=== PATIENT | female | born 1965 | race Caucasian/White ===

== ENCOUNTER 2024-11-19 12:46 | Emergency (ER) | payer OTHER ==
[2024-11-19 13:14] VITALS: TEMP 97
[2024-11-19 13:16] LABS: BASOPHIL % 0.8 % (0.1-1.2); Basophil (Absolute #) 0.04 x10^3/uL (0.01-0.08); Eosinophil (Absolute #) 0.15 x10^3/uL (0.04-0.36); Hematocrit 43.0 % (34.1-44.9); Hemoglobin 14.2 g/dL (11.2-15.7); IMMATURE GRAN # 0.03 x10^3u/L (0.001-0.031); IMMATURE GRAN % 0.6 % (0.001-0.429); Lymphocyte (Absolute #) 1.17 x10^3/uL (1.18-3.74); Mean Corpuscular Hemoglobin 33.6 pg (25.6-32.2); Mean Corpuscular Hgb Concent. 33.0 g/dL (32.2-35.5); Monocyte (Absolute #) 0.51 x10^3/uL (0.24-0.86); NUCLEATED RBC # 0.00 x10^3u/L (0.00-0.012); NUCLEATED RBC % 0.0 % (0.00-0.2); Platelet Count 212 x10^3/uL (182-369); Red Blood Count 4.23 x10^6/uL (3.93-5.22); White Blood Count 4.8 x10^3/uL (3.98-10.04)
--- NOTE | 2024-11-19 13:18 | ERPHSYRPT ---
- History of Present Illness Time Seen by Provider: 11/19/24 12:52 Source: patient, family Exam Limitations: no limitations Patient Subjective Stated Complaint: patient has had right lower extremity pain that goes across lower back since Triage Nursing Assessment: patient presents to ed via private vehicle accompanied by friend, patient wheeled into ed via wheelchair, patient able to transfer to bed by self with noted weakness to right lower extremity, patient alert and oriented x 4, skin p/w/d Physician History: Patient is here with right hip pain that radiates across to her right lower back. Patient states that she has had pain for approximately 1 month. States that she does have a follow-up with her PCP tomorrow, Dr. Valdovinos. Patient states that she describes the pain as cramping, mid thigh to right hip. Over the past few days it has started to radiate to her right back. Patient states that she does have a history of lumbar fusions. She has no falls or other trauma. States that she has tried Tylenol, ibuprofen. She did not feel it helped very much. Patient was seen at [facility]. There she was given Flexeril. She states that this only helped somewhat. Over the past 2 to 3 days she has stated that the cramping has gotten much worse. She finds it difficult to get out of bed. Again, no falls or trauma. No fever or chills. No other infectious type symptoms. Describes it only as cramping and muscle spasms. Patient has no red flag symptoms for back pain today: No Loss of control of the bowel or bladder. No weakness or numbness in a leg or arm. No foot drop, disturbed gait. No high fever, no IV drug use. No saddle anaesthesia (numbness of the anus, perineum or genitals). No trauma or h/o cancer Allergies/Adverse Reactions: ziprasidone [From Geodon] Allergy (Verified 11/19/24 13:03) Home Medications: Buspirone HCl [Bucapsol] 10 mg PO BID 11/19/24 [History] Cholecalciferol (Vitamin D3) [Vitamin D3] 1,000 mcg PO DAILY 11/19/24 [History] Cyanocobalamin (Vitamin B-12) [Vitamin B12] 1,000 mcg PO DAILY 11/19/24 [History] Eszopiclone [Lunesta] 2 mg PO HS 11/19/24 [History] Furosemide [Lasix] 20 mg PO DAILY 11/19/24 [History] Levothyroxine Sodium [Synthroid] 125 mcg PO DAILY 11/19/24 [History] Loperamide HCl 2 mg [Imodium 2 mg] 2 mg PO CLARIFY 11/19/24 [History] Ondansetron ODT 4 MG [Zofran Odt 4 mg] 8 mg PO Q6-8HPRN PRN 11/19/24 [History] Phentermine HCl [Adipex-P] 37.5 mg PO DAILY 11/19/24 [History] Travel Risk - International Travel Have you traveled outside of the country in past 3 weeks: No - Emerging Infectious Disease Are you exhibiting symptoms associated with any current EIDs: No - Past Medical History Pertinent Past Medical History: Yes Respiratory History: Other Endocrine Medical History: Hypothyroidism Other Medical History: pernicious anemia, hx pyloric stenosis as child, nodule on lung. hx: squamous cell carcinoma and colorectal cancer - Past Surgical History Past Surgical History: Yes Gastrointestinal: Appendectomy, Cholecystectomy, Hernia Repair Musculoskeletal: Orthopedic Surgery Female Surgical History: Hysterectomy Other Surgical History: pyloric stenosis NB. knee surgery to both. carpal tunnel surgery x 3 to both hands. herniated disc repair. disc compression surgery. triple laminectomy lower back. rods placed in back. hx: T-9/T10 fracture - Social History Smoking Status: Current every day smoker Exposure to second hand smoke: Yes Drug Use: marijuana - Social Determinants of Health Will the patient participate in the screening: Yes Do you worry about a steady place to live?: No Do you have any problems with any of the following?: No known problems In the past 12 months,have you had to go without utilities?: No Transportation Issues: No Has anyone in your support network made you feel unsafe?: No Have you or anyone in your house had to go w/o enough food: No - Nursing Vital Signs Nursing Vital Signs: Initial Vital Signs Temperature 97 F 11/19/24 12:47 Pulse Rate 100 H 11/19/24 12:47 Respiratory Rate 16 11/19/24 12:47 O2 Sat by Pulse Oximetry 98 11/19/24 12:47 Pain Scale Pain Intensity 6 - Physical Exam SpO2: 99 Comments: Review of Systems Constitutional: Negative for fever. HENT: Negative for congestion. Respiratory: Negative for shortness of breath. Cardiovascular: Negative for chest pain. Gastrointestinal: Negative for abdominal pain. Genitourinary: Negative for dysuria. Musculoskeletal: Negative for back pain. Skin: Negative for rash. Neurological: Negative for headaches. Psychiatric/Behavioral: Negative for behavioral problems. All other systems reviewed and are negative. Physical Exam Vitals signs and nursing note reviewed. Constitutional: Appearance: Patient is well-developed. HENT: Head: Normocephalic and atraumatic. Eyes: Conjunctiva/sclera: Conjunctivae normal. Neck: Musculoskeletal: Normal range of motion. Trachea: No tracheal deviation. Cardiovascular: Rate and Rhythm: Normal rate. Heart sounds normal. Pulmonary: Effort: Pulmonary effort is normal. No respiratory distress. Abdominal: Palpations: Abdomen is soft. Musculoskeletal: General: Right anterior hip tenderness extending into the right lateral thigh. Some tenderness over low back. No specific L-spine, T-spine tenderness no step-offs no deformities. No obvious deformity, sensation intact, 2+ capillary refill. 5 out of 5 strength. Full range of motion with pain. Compartments are soft, nontender. Overlying skin shows no tenting, bruising, ecchymosis. Skin: General: Skin is warm and dry. Neurological/ Psychiatric: Mental Status: Mental status, behavior, interaction with environment is appropriate for patient's age and condition - Course Nursing assessment & vital signs reviewed: Yes Ordered Tests: Active Orders 24 hr Category Date Time Status IV Insertion STAT Care 11/19/24 12:59 Completed ABDOMEN AND PELVIS W/0 CONTRAS [CT] Stat Exams 11/19/24 12:59 Completed BMP Stat Lab 11/19/24 13:14 Completed CBC W DIFF Stat Lab 11/19/24 13:14 Completed CK (IN-HOUSE) [CK-Creatinine Phosphokinase] Stat Lab 11/19/24 13:14 Completed Medication Summary Discontinued Medications Generic Name Dose Route Start Last Admin Trade Name Freq PRN Reason Stop Dose Admin Hydrocodone Bitart/Acetaminophen 2 tab 11/19/24 15:24 11/19/24 15:31 Hydrocodone/Apap 5/325 1 Tab Tablet PO 11/19/24 15:25 2 tab SENT HOME W/ PATIENT ONE Administration Hydrocodone Bitart/Acetaminophen Confirm 11/19/24 15:28 Hydrocodone/Apap 5/325 1 Tab Tablet Administered 11/19/24 15:29 Dose 2 tab .ROUTE .STK-MED ONE Sodium Chloride 1,000 mls @ 999 mls/hr 11/19/24 12:59 11/19/24 14:22 Sodium Chloride 0.9% 1000 Ml IV 11/19/24 13:59 Infused .Q1H1M STA Infusion Sodium Chloride Confirm 11/19/24 13:20 Sodium Chloride 0.9% 1000 Ml Administered 11/19/24 13:21 Dose 1,000 mls @ ud .ROUTE .STK-MED ONE Ketorolac Tromethamine 30 mg 11/19/24 12:59 11/19/24 13:23 Ketorolac Tromethamine 30 Mg/Ml Inj IV 11/19/24 13:00 30 mg STAT ONE Administration Ketorolac Tromethamine Confirm 11/19/24 13:19 Ketorolac Tromethamine 30 Mg/Ml Inj Administered 11/19/24 13:20 Dose 30 mg .ROUTE .STK-MED ONE Morphine Sulfate 4 mg 11/19/24 12:59 11/19/24 13:23 Morphine Sulfate 4 Mg/Ml Injection IV 11/19/24 13:00 4 mg STAT ONE Administration Morphine Sulfate Confirm 11/19/24 13:20 Morphine Sulfate 4 Mg/Ml Injection Administered 11/19/24 13:21 Dose 4 mg .ROUTE .STK-MED ONE Lab/Rad Data: Laboratory Result Diagrams 11/19/24 13:14 11/19/24 13:14 Laboratory Results 11/19/24 11/19/24 11/19/24 Range/Units 13:14 13:14 13:14 WBC 4.8 (3.98-10.04) x10^3/uL RBC 4.23 (3.93-5.22) x10^6/uL Hgb 14.2 (11.2-15.7) g/dL Hct 43.0 (34.1-44.9) % MCV 101.7 H (79.4-94.8) fL MCH 33.6 H (25.6-32.2) pg MCHC 33.0 (32.2-35.5) g/dL RDW 13.5 (11.7-14.4) % Plt Count 212 (182-369) x10^3/uL MPV 8.7 L (9.4-12.3) fL Gran % 60.6 (34.0-71.1) % Immature Gran % (Auto) 0.6 H (0.001-0.429) % Nucleat RBC Rel Count 0.0 (0.00-0.2) % Eos # (Auto) 0.15 (0.04-0.36) x10^3/uL Immature Gran # (Auto) 0.03 (0.001-0.031) x10^3u/L Absolute Lymphs (auto) 1.17 L (1.18-3.74) x10^3/uL Absolute Monos (auto) 0.51 (0.24-0.86) x10^3/uL Absolute Nucleated RBC 0.00 (0.00-0.012) x10^3u/L Lymphocytes % 24.3 (19.3-51.7) % Monocytes % 10.6 (4.7-12.5) % Eosinophils % 3.1 (0.7-5.8) % Basophils % 0.8 (0.1-1.2) % Absolute Granulocytes 2.92 (1.56-6.13) x10^3/uL Basophils # 0.04 (0.01-0.08) x10^3/uL Sodium 138 (135-145) mmol/L Potassium 4.2 (3.5-5.1) mmol/L Chloride 104 (98-107) mmol/L Carbon Dioxide 23 (22-30) mmol/L Anion Gap 14.8 (5-15) MEQ/L BUN 10 (7-17) mg/dL Creatinine 0.74 (0.52-1.04) mg/dL Estimated GFR 93.1 ML/MIN Glucose 100 (74-106) mg/dL Calcium 10.2 (8.4-10.2) mg/dL Creatine Kinase < 20 L (30-135) U/L - Progress Progress: improved Progress Note: 11/19/24 13:18 Differential diagnosis includes kidney stone, compression fracture, infection, UTI, triple AAA, rhabdomyolysis, muscle cramping, electrolyte abnormality - basic labs including: CBC, lipase, CMP, UA, CK - insert IV for symptom management - consider imaging: CT ab/pelvis or U/S Reevaluation Patient feels improved with medication. 11/19/24 16:27 Overall, no obvious cause for patient's right hip, right thigh, right low back pain. CT scan did not demonstrate any acute fractures, small bowel obstruction, kidney stone, other obvious causes for hip pain. I did review all radiology images. See radiologist official read for full details. I did discuss results and all incidental findings with patient/family. They state their understanding and need for appropriate follow-up. One of the incidental findings was a 14 mm common bile duct. Patient is postcholecystectomy. Therefore unclear if this is new or a presentation of her post gallbladder state. I did discuss the finding with the patient as well as all other incidental findings. I did offer obtaining liver enzymes this afternoon, obtaining an ultrasound to better evaluate the common bile duct. I did explain the risks and benefits of this including diagnosis of acute choledocholithiasis or cholangitis. These potentially could have life-threatening consequences. Patient has no leukocytosis, fever, tachycardia. After explaining the entire picture including morbidity and mortality, patient states that she would rather follow-up with Dr. Bonifacio Bakns tomorrow. She already has an appointment with her PCP and would prefer to see him for outpatient testing. As long as she understands risks and benefits, I do feel this is a reasonable decision. I went over all other incidental findings on the CT scan. I did recommend that she return here for any new or changing symptoms. Patient was given 2 [place] to go home with. She will follow-up with Dr. Banks for any other long-term pain control solutions. Her friend is driving her home today. I did educate patient not to drive today. Counseled pt/family regarding: lab results, diagnosis, need for follow-up, rad results - Departure Departure Disposition: Home Clinical Impression: Right hip pain, Common bile duct dilation Condition: Stable Critical Care Time: No Referrals: RADHA BANKS MD [Primary Care Provider, [facility]] - Follow up/PCP as directed Instructions: Contusion (DC) Additional Instructions: see your primary care doctor for reexam tomorrow. You should follow-up with the common bile duct dilation with him. He may return here at any point in time for new or changing symptoms.
[2024-11-19] MEDS ORDERED: TORAdol 30 mg Injection ONE (13:19)
[2024-11-19] MEDS ORDERED: MORPHINE SULFATE 4 MG INJ ONE (13:20)
[2024-11-19] MEDS: TORAdol 30 mg Injection IV ONE (13:23)
[2024-11-19] MEDS: MORPHINE SULFATE 4 MG INJ IV ONE (13:23)
[2024-11-19 13:32] LABS: Calcium 10.2 mg/dL (8.4-10.2); Carbon Dioxide 23.0 mmol/L (22-30); Creatinine 1 0.74 mg/dL (0.52-1.04); EST GLOMERULAR FILTRATION RATE 93.1 ML/MIN; Glucose 100.0 mg/dL (74-106); Potassium 4.2 mmol/L (3.5-5.1)
--- NOTE | 2024-11-19 15:08 | XRAY ---
CLINICAL HISTORY: pelvis pain, back pain COMPARISON: No prior studies are available for comparison. TECHNIQUE: Non-contrast CT of the abdomen and pelvis was performed with the following protocol: axial images as well as reconstructed coronal and sagittal images. No intravenous contrast was administered. One of the following dose reduction techniques was utilized for this exam: automated exposure control, adjustment of the mA and/or kV according to patient size, and use of iterative reconstruction. DLP: 468.41 mGy-cm, CTDI: 9.2 mGy. FINDINGS: Abdomen: Liver: The liver is normal in size, shape, and density. No focal lesions, cysts, or masses are identified. Gallbladder and Biliary System: Cholecystectomy with cystic dilatation of the CBD, measuring about 14 mm, showing gradual tapering at its lower end. No intrahepatic biliary dilatation is present. Pancreas: The pancreatic head, body, and tail are visualized and appear normal in size and density. No pancreatic masses or calcifications are noted. Spleen: The spleen is normal in size, shape, and density. No splenic lesions or masses are identified. Kidneys and Adrenal Glands: Both kidneys are normal in size, shape, and position. Cortical thickness is within normal limits. No renal calculi or hydronephrosis are present. The adrenal glands are unremarkable. Appendix: The appendix has been surgically removed. Pelvis: Hysterectomy with a clear operative bed. There is stranding of the pelvic and presacral fat planes, possibly representing postoperative or inflammatory sequelae. Urinary bladder: The urinary bladder is normal in contour and wall thickness. No intraluminal lesions are identified. Peritoneal and Retroperitoneal Structures: No free fluid or abnormal fluid collections are identified within the abdomen or pelvis. No lymphadenopathy is noted. Bowel: The rectum and sigmoid colon are collapsed, with mild wall thickening and small sigmoid diverticulae. There is no evidence of bowel obstruction or sizable lesions. Bones and Soft Tissues: There is previous lower lumbar surgery and internal fixation at the L4-L5 level. Diffuse spondylotic changes and mild scoliosis are present. There is a right lung base atelectatic band. IMPRESSION: 1. No renal calculi or hydronephrosis. 2. Cholecystectomy with dilatation of the CBD, measuring about 14 mm, showing gradual tapering at its lower end. No intrahepatic biliary dilatation. 3. Hysterectomy with a clear operative bed. 4. Stranding of the pelvic and presacral fat planes, possibly representing postoperative or inflammatory sequelae. 5. The rectum and sigmoid colon are collapsed, with mild wall thickening and small sigmoid diverticulae, possibly representing a mild inflammatory process. 6. Previous lower lumbar surgery and internal fixation. 7. Advise clinical correlation. Electronically Signed by: Edgar Arriaza MD. (11/19/2024 15:06:00 EDT)
[2024-11-19] MEDS ORDERED: NORCO 5/325 MG ONE (15:28)
[2024-11-19] MEDS: NORCO 5/325 MG PO ONE (15:31)
[2024-11-19 15:45] VITALS: BP 153/62; PULSE 92; RESP 18
[2024-11-19 16:32] VITALS: O2SAT 99
== END 2024-11-19 15:38 | disposition home or self-care (01) ==
LOC: ED 12:46
DX: M25.551 Pain in right hip (principal); K83.8 Other specified diseases of biliary tract; M54.50 Low back pain, unspecified; Z79.899 Other long term (current) drug therapy; Z72.0 Tobacco use